=== PATIENT | male | born 1985 | race Caucasian/White ===

== ENCOUNTER 2018-02-24 20:38 | Inpatient (IN) ==
[2018-02-24] MEDS ORDERED: Acetaminophen 325 MG TABLET PO PRN (22:51)
[2018-02-24] MEDS ORDERED: *HR* LORazepam 2 MG/ML VIAL IVP PRN (22:51)
[2018-02-24] MEDS ORDERED: *HR* Promethazine 25 MG/ML VIAL IVP PRN (22:51)
[2018-02-24] MEDS ORDERED: Naloxone 0.4 MG/ML INJ IVP PRN (22:51)
--- NOTE | 2018-02-24 23:11 | Internal Med History&Physical ---
Date of Encounter: 02/24/18 Time of Encounter: 22:15 Internal Medicine - H&P: HPI Chief complaint: lightheaded; dizzy; near syncope Admitted From: Hospital to Hospital Transfer Plans for Post Hospital Care: Home History of present illness: Mr. Medrano is a 32 year old male who presents in transfer from [facility] Emergency Department for concerns of near syncope, dehydration, and acute renal failure. I spoke with Dr. Calderon and accepted the patient in transfer. Upon arrival to the [facility], I saw patient shortly after he came to the unit. Patient complained of profound lightheadedness, dizziness, and almost passed out today. He was working at a local [employer] this weekend and was outside in the heat and humidity and sweating profusely. He has had very little oral fluid intake. He also actually had some significant vomiting today. In addition to that, he's been on his routine medications including his metoprolol and Losartan/HCT. He also complains of chronic diarrhea for over 1 month duration. He has been having about 3-4 liquid stools per day and is having poor oral intake. His has been hospitalized over the last month with Clostridium Difficile colitis and he has been obviously exposed to her. He states he has been tested for C. difficile colitis twice recently in the last few weeks (both reportedly negative). However, I could find no documentation of that other than November of this year. He denies any fevers, chills, or night sweats. He denies any bleeding ulcers or melena or hematemesis. He does inform me that he drinks alcohol excessively, roughly 20 shots of hard liquor per day. His last alcohol intake was 2 days ago. He has never gone through alcohol withdrawal, but he does feel a little shaky and jittery. He and his both drink alcohol excessively, but he is adamant that they are both quitting alcohol effective immediately. Upon presentation to the ER in [place], his blood pressure was low at 80s/40s. He was feeling quite lightheaded and dizzy and on the verge of syncope. He was fluid resuscitated there with 2 L of fluids and then started on maintenance IV fluids. He states that after his fluid resuscitation, he feels much better. He has no further dizziness, lightheadedness, or sensation that he is going to pass out. Currently, his blood pressure is 124/71. Past Med Surg Social Fam HX - Past Medical History Attestation: Yes The following information was validated with the patient. Source: patient, old records reviewed, other ([facility] records) Medical history: asthma, GERD, hypertension Psychiatric history: anxiety, depression - Past Surgical History Surgical History: no surgical history Additional surgical history: MRSA on right knee. - Social History Smoking Status: Never smoker Smokeless Tobacco Status: No Alcohol use: heavy (reports 20 shots per day hard liquor) Drug use: none Current living situation: Home, With Family Activity Level: Independent ambulation Recent Out of Country Travel Within the Last 8 Weeks: No - Family History Mother Adopted: No Twin of Family Member: Yes, Identical Living Status: Still Living Hx Family Cardiac Disorders: Yes (father) Hx Family Respiratory Disorders: No Hx Family Cancer: Yes (grandma) Hx Family GI Disorders: No Hx Family Genitourinary Disorders: No Hx Family Endocrine Disorder: Yes (thyroid disease) Hx Family Musculoskeletal Disorders: No Hx Family Neuromuscular Disorders: No Hx Family Neurologic Disorders: No Hx Family HEENT Disorders: No Hx Family Autoimmune Disorders: No Hx Family Reproductive Disorders: No Hx Family Psychosocial Disorders: No Hx Family Medical Disorders: No Internal Medicine - H&P: Meds ALPRAZolam [Xanax 0.5 MG Tablet] 1 tab PO DAILY 11/24/17 [History] Bupropion HCl [Wellbutrin Xl] 300 mg PO DAILY 11/24/17 [History] Losartan/Hydrochlorothiazide [Losartan-Hctz 100-25 mg Tab] 1 tab PO DAILY [History] Metoprolol [Lopressor] 25 mg PO DAILY 11/24/17 [History] Omeprazole [PriLOSEC] 20 mg PO DAILY 11/24/17 [History] 3 Allergy/AdvReac Type Severity Reaction Status Date / Time No Known Allergies Allergy Verified 12/20/17 14:45 - Constitutional Constitutional: no chills, no fever(s), no night sweats - EENT Eyes: no blurry vision, no change in vision Ears: no ear pain, no tinnitus Nose, mouth and throat: no nasal congestion, no sinus pressure, no sore throat - Cardiovascular Cardiovascular ROS IM: lightheadedness, other (+ near syncope), no chest pain, no dyspnea, no dyspnea on exertion, no orthopnea, no palpitations, no paroxysmal nocturnal dyspnea, no syncope - Respiratory Respiratory: no cough, no dyspnea, no hemoptysis, no chest congestion, no excessive phlegm production, no change in phlegm color - Gastrointestinal Gastrointestinal: diarrhea, heartburn, nausea, vomiting, no abdominal pain, no coffee ground emesis, no hematemesis, no hematochezia, no melena - Genitourinary Genitourinary ROS male: difficulty urinating (decreased urine output last 24 hours), no dysuria, no flank pain, no hematuria - Musculoskeletal Musculoskeletal ROS IM: muscle cramps, no arthralgias, no back pain - Integumentary Integumentary IM: no rash, no jaundice - Neurological Neurological ROS: dizziness, no focal weakness, no frequent falls, no headache(s ), no numbness, no paresthesias - Psychiatric Psychiatric: anxiety, no depression - Endocrine Endocrine IM: excessive sweating, flushing, no cold intolerance, no heat intolerance, no polydipsia, no polyphagia - Allergic/Immunologic Allergic/Immunologic: no GI upset with certain foods - Constitutional Vitals: Temp Pulse Resp BP Pulse Ox 98.8 F 96 18 102/66 96 02/24/18 22:08 02/24/18 22:08 02/24/18 22:08 02/24/18 22:08 02/24/18 22:08 General appearance: Present: cooperative, mild distress, A&O X 3, pleasant, answers questions appropriately Exam: looks dehydrated; sunburnt/exposed (face); a little jittery - Head Head exam: Present: atraumatic, normal inspection - Eye Eye exam: Present: EOMI, PERRL. Absent: scleral icterus Pupils: Present: normal accommodation - ENT ENT exam: Present: mucous membranes dry, normal exam, normal oropharynx - Neck Neck exam general surgery: Present: full ROM, supple. Absent: tenderness, nuchal rigidity, thyromegaly - Respiratory Respiratory exam: Present: CTAB. Absent: chest wall tenderness, rales, respiratory distress, rhonchi, wheezes - Cardiovascular Cardiovascular exam: Present: RRR, +S1, +S2. Absent: diastolic murmur, systolic murmur - GI/Abdominal GI/Abdominal exam: Present: normal bowel sounds, soft. Absent: guarding, hepatomegaly, mass, rebound, splenomegaly, tenderness - Extremities Exam Extremities exam: Present: full ROM, tenderness (mild cramping), warm, radial pulses palpable and symmetrical. Absent: calf tenderness, joint swelling, pedal edema - Back Exam Back exam: Present: normal inspection. Absent: CVA tenderness (L), CVA tenderness (R) - Neurological Exam Neurological exam: Present: alert, CN II-XII intact, oriented X3, no focal deficits, strengths equal and symetr throughout - Psychiatric Psychiatric exam: Present: normal affect, normal mood - Skin Skin exam: Present: dry, intact, warm Internal Med - H&P Results - Labs Labs: I reviewed the labs at [facility] and they include the following: WBC 13.5 Hemoglobin 16.4 Hematocrit 47.1 Platelets 273 Sodium 129 Potassium 3.8 Chloride 93 Creatinine 7.13 Glucose 99 Lactic acid 1.1 Creatinine kinase 49 Urinalysis -- cloudy urine, specific gravity greater than 1.030 - Assessment and plan (1) Acute kidney failure Current Visit: Yes Status: Acute Assessment and plan: 1. Likely due to volume depletion in the setting of diuretic use, ARB use, inability to compensate low BP due to BB use, and volume loss from excessive sweating, vomiting, and diarrhea while being exposed to heat, sun, and humidity. 2. Patient also likely suffering form alcohol withdrawal and increased insensible water loss. 3. Will hydrate aggressively, hold BP meds, monitor chemistries and renal function closely. 4. Will order renal ultrasound in the morning. 5. Will culture urine, but I do not suspect infection. Blood cultures already obtained at [place]. 6. Consult nephrology to assist with management and follow up. Qualifiers: Acute renal failure type: unspecified Qualified Code(s): N17.9 - Acute kidney failure, unspecified (2) Hypovolemic shock Current Visit: Yes Status: Resolved Assessment and plan: 1. Patient fluid resuscitated at [facility]. 2. Continue IVF hydration aggressively and monitor hemodynamics. 3. Monitor I/O closely. (3) Alcohol withdrawal Current Visit: Yes Status: Acute Assessment and plan: 1. Will place on CIWA protocol. 2. Will schedule Librium given his early withdrawal symptoms and heavy liquor use. 3. MVI/Thiamine/Folate per protocol. 4. I had a lengthy, [id number] talk with patient on the need to quit alcohol abuse -- both he and his . Patient agreed and states he and are both determined to abstain from alcohol. Patient may need social sciences professor and referral to AA. Qualifiers: Complication of substance-induced condition: uncomplicated Qualified Code(s ): F10.230 - Alcohol dependence with withdrawal, uncomplicated (4) Diarrhea Current Visit: Yes Status: Chronic Assessment and plan: 1. Will order stool GI panel and start treatment for suspected C. Diff with Flagyl. 2. Contact precautions. 3. Will stop Flagyl if GI panel negative. 4. May also be due to alcohol abuse/withdrawal. Qualifiers: Diarrhea type: unspecified type Qualified Code(s): R19.7 - Diarrhea, unspecified (5) DVT prophylaxis Current Visit: Yes Status: Acute Assessment and plan: 1. Heparin SQ.
[2018-02-24 23:36] LABS: Albumin 4.6 g/dL (3.5-5.7); Albumin/Globulin Ratio 1.8 (1.1-2.2); Bilirubin,Total 0.9 mg/dL (0.3-1.0); Calcium 9.3 mg/dL (8.6-10.3); Globulin 2.6 g/dL (2.4-3.5); Magnesium 1.8 mg/dL (1.6-2.6); Potassium 3.9 mEq/L (3.5-5.1); Total Protein 7.2 g/dL (6.4-8.9)
[2018-02-24] MEDS: metroNIDAZOLE 500 MG TABLET PO SCH (23:53)
[2018-02-24] MEDS: Famotidine 20 MG TABLET PO SCH (23:53)
[2018-02-24] MEDS: *HR* Heparin 5,000 UNIT/ML VIAL SQ SCH (23:53)
[2018-02-25] MEDS: 0.9 % Sodium Chloride 1,000 ML IVC SCH ×2 (03:15→09:55)
[2018-02-25 05:35] LABS: Basophils # 0.1 K/mcL (0.0-0.2); Basophils % 0.6 %; Eosinophils # 0.1 K/mcL (0.0-0.6); Eosinophils % 0.6 %; Hematocrit 40.7 % (37.5-50.1); Hemoglobin 14.2 g/dL (12.9-16.9); Immature Granulocytes % 1.6 % (0-4); Lymphocytes # 2.6 K/mcL (0.6-4.6); Lymphocytes % 21.8 %; Mean Corpuscular HGB Conc 34.9 g/dL (31.6-35.5); Mean Corpuscular Hemoglobin 33.8 pg (28.0-33.3); Mean Corpuscular Volume 96.9 fL (83.0-100.0); Mean Platelet Volume 10.2 fL (9.4-12.4); Monocytes # 1.2 K/mcL (0.0-1.3); Monocytes % 10.6 %; Neutrophils # 7.6 K/mcL (1.6-8.9); Platelet Count 226 K/mcL (140-400); Red Cell Distribution Width 13.2 % (11.5-14.5); Segmented Neutrophils % 64.8 %
[2018-02-25 05:41] LABS: Prothrombin Time 10.7 Seconds (9.4-12.1)
[2018-02-25 05:43] LABS: Activated Partial Thrombo Time 27.7 Seconds (26.0-36.0)
[2018-02-25 05:58] LABS: Calcium 8.5 mg/dL (8.6-10.3); Potassium 3.5 mEq/L (3.5-5.1)
[2018-02-25] MEDS: *HR* Heparin 5,000 UNIT/ML VIAL SQ SCH ×3 (06:12→22:06)
[2018-02-25] MEDS: Famotidine 20 MG TABLET PO SCH (07:55)
[2018-02-25] MEDS: metroNIDAZOLE 500 MG TABLET PO SCH (07:55)
[2018-02-25] MEDS ORDERED: *HR* LORazepam 2 MG/ML VIAL IVP PRN ×2 (08:46)
[2018-02-25 10:39] LABS: Adenovirus F 40/41 PCR Not detected (Not detect); Astrovirus PCR Not detected (Not detect); C.difficile Toxin A/B by PCR Not detected (Not detect); Campylobacter by PCR Not detected (Not detect); Cryptosporidium by PCR Not detected (Not detect); Cyclospora cayetanensis PCR Not detected (Not detect); E. coli O157 by PCR Not detected (Not detect); Entamoeba histolytica PCR Not detected (Not detect); Enteroaggregative E.coli(EAEC) Not detected (Not detect); Enteropathogenic E.coli(EPEC) Not detected (Not detect); Enterotoxigenic E.coli (ETEC) Not detected (Not detect); Giardia lamblia PCR Not detected (Not detect); Norovirus GI/GII PCR Not detected (Not detect); Plesiomonas shigelloides PCR Not detected (Not detect); Rotavirus A PCR Not detected (Not detect); Salmonella PCR Not detected (Not detect); Sapovirus PCR Not detected (Not detect); Shig/EnteroinvasiveE coli EIEC Not detected (Not detect); Shigalike tox-prod E coli STEC Not detected (Not detect); Vibrio PCR Not detected (Not detect); Vibrio cholerae PCR Not detected (Not detect); Yersinia enterocolitica PCR Not detected (Not detect)
--- NOTE | 2018-02-25 10:59 | Nephrology Consult Note ---
Date of Encounter: 02/25/18 Time of Encounter: 10:47 Assessment and Plan (1) PIPE (acute kidney injury) Current Visit: Yes Status: Acute Initial Scr is 5.6 slightly improved at 4.67. Gfr is 12 improved at 15. Continue IVF. Strict I/O. Urine and serum studies ordered. Retroperitoneal US ordered. Avoid nephrotoxins and renal dose all medications. (2) Diarrhea Current Visit: Yes Status: Chronic Supportive care. Cdiff is negative. Qualifiers: Diarrhea type: unspecified type Qualified Code(s): R19.7 - Diarrhea, unspecified (3) Dehydration Current Visit: No Status: Acute Continue IVF. Continue adequate PO intake. History of Present Illness - Reason for Consult Consult date: 02/25/18 Acute Kidney Injury - Chief Complaint PIPE/dehydration - History of Present Illness Mr. Medrano is a 32 year old male who presented to [facility] ED for near syncope , dehydration, and ARF, he was then transferred to [facility]. He c/o of sever lightheadedness, dizziness, and almost passing out today. He was working outdoor at a [employer] in the heat and humidity and admitted to sweating profusely. He admits to poor po intake and loose watery stools for nearly 4 weeks. He tells me that his had C-Diff, but that he has been tested twice and it has been negative (I can not find testing anywhere in the chart). However a sample was sent down this morning and it was negative. Pt is on Losartan/HCTZ at home. Pt admits to me he and his taking roughly "20 shots a day". He reports his has decreased quite a bit with her sickness, but his last drink was Sunday. He has never withdrawn before, and feels okay right now. He is telling me that both his and him are "done drinking" and his is seeing her PCP today to get some help in quitting etoh. He does not smoke of use illegal drugs. PIPE workup has been ordered to rule out other processes. Strict I/O. Encourage PO intake and continue IVF. Past Med Surg Social Fam HX - Past Medical History Medical history: asthma, GERD, hypertension Psychiatric history: anxiety, depression - Past Surgical History Surgical History: no surgical history Additional surgical history: MRSA on right knee. - Social History Smoking Status: Never smoker Smokeless Tobacco Status: No Alcohol use: heavy (reports 20 shots per day hard liquor) Drug use: none - Family History Mother Adopted: No Twin of Family Member: Yes, Identical Living Status: Still Living Hx Family Cardiac Disorders: Yes (father) Hx Family Respiratory Disorders: No Hx Family Cancer: Yes (grandma) Hx Family GI Disorders: No Hx Family Genitourinary Disorders: No Hx Family Endocrine Disorder: Yes (thyroid disease) Hx Family Musculoskeletal Disorders: No Hx Family Neuromuscular Disorders: No Hx Family Neurologic Disorders: No Hx Family HEENT Disorders: No Hx Family Autoimmune Disorders: No Hx Family Reproductive Disorders: No Hx Family Psychosocial Disorders: No Hx Family Medical Disorders: No Medications and Allergies ALPRAZolam [Xanax 0.5 MG Tablet] 1 tab PO DAILY 11/24/17 [History] Bupropion HCl [Wellbutrin Xl] 300 mg PO DAILY 11/24/17 [History] Losartan/Hydrochlorothiazide [Losartan-Hctz 100-25 mg Tab] 1 tab PO DAILY [History] Metoprolol [Lopressor] 25 mg PO BID 11/24/17 [History] Omeprazole [PriLOSEC] 20 mg PO DAILY 11/24/17 [History] Albuterol Sulfate [Ventolin Hfa] 2 puff IH Q6H PRN 02/25/18 [History] Budesonide/Formoterol 80/4.5 [Symbicort 80/4.5] 2 puff IH BID 02/25/18 [History ] 3 Allergy/AdvReac Type Severity Reaction Status Date / Time No Known Allergies Allergy Verified 12/20/17 14:45 Review of Systems All Systems review (narrative): all other systems negative. Constitutional: fatigue, headache(s), no chills, no fever(s) Cardiovascular: lightheadedness, syncope, no chest pain, no dyspnea Respiratory: no cough, no dyspnea Gastrointestinal: change in bowel habits, diarrhea, nausea, vomiting Genitourinary Male: no dysuria, no hematuria, no urinary frequency, no urinary hesitancy Exam - Vital Signs Vital signs: Initial Vital Signs Temp Pulse Resp BP Pulse Ox 98.8 F 96 18 102/66 96 02/24/18 22:08 02/24/18 22:08 02/24/18 22:08 02/24/18 22:08 02/24/18 22:08 Vital Signs - Last 8 Hours Temp Pulse Resp BP Pulse Ox 02/25/18 06:30 97.8 F 81 20 103/64 98 02/25/18 05:02 97.8 F 78 18 110/62 92 Intake and Output 02/24/18 02/25/18 02/25/18 23:59 07:59 15:59 Intake Total 60 / 60 607 / 607 393 / 393 Output Total 400 / 400 800 / 800 Balance 60 60 207 / 207 -407 / -407 Intake: IV Fluids 607 / 607 393 / 393 0.9 % Sodium Chloride 1,000 ML 607 / 607 393 / 393 @ 200 mls/hr IVC .Q5H SHANE Rx#: [id number] Oral 60 60 Output: Urine 400 / 400 800 / 800 Other: Stool Size Moderate Stool Consistency loose Stool Characteristics Mucoid Stool Color Brown Weight 139.6 kg 139.6 kg Patient Weight 02/25/18 23:59 Weight 139.6 kg - General Appearance General appearance: well-developed, well-nourished EENT: ATNC, hearing intact, vision intact Neck: supple Respiratory: clear Cardiology: no edema, normal S1, normal S2 Gastrointestinal: normoactive bowel sounds, no tenderness, no guarding Integumentary: no rash, warm and dry Neurologic: alert and oriented x3 Psychiatric: mood/affect appropriate, cooperative Results - Lab Results 02/25/18 05:16 02/25/18 05:16 Most recent lab results Calcium 8.5 mg/dL (8.6-10.3) L 02/25/18 05:16 Magnesium 1.8 mg/dL (1.6-2.6) 02/24/18 23:06 Consult Discharge Plan - Plan Referrals: Andreina Black, MEDICAL SUPPORT SPECIALIST [Primary Care Provider] -
[2018-02-25 12:11] LABS: Bilirubin,Urine Negative (Negative); Blood,Urine Negative (Negative); Clarity,Urine Clear (Clear); Color,Urine Yellow (Yellow); Glucose,Urine (UA) Normal (Normal); Ketones,Urine Negative (Negative); Leukocyte Esterase,Urine Negative (Negative); Nitrite,Urine Negative (Negative); Protein,Urine Negative (Neg-Trace); Specific Gravity,Urine 1.016 (1.010-1.025); Urobilinogen,Urine Normal (Normal)
[2018-02-25 14:47] LABS: Hepatitis A Antibody IgM Nonreactive (Nonreactive); Hepatitis B Core IgM Nonreactive (Nonreactive); Hepatitis B Surface Antigen Nonreactive (Nonreactive); Hepatitis C Virus Antibody Nonreactive (Nonreactive)
--- NOTE | 2018-02-25 17:27 | Internal Med Progress Note ---
Hospitalist Progress Note - Encounter Date of Encounter: 02/25/18 Time of Encounter: 17:15 - Subjective Interval History: Pt denies fever chills, N/V or abdominal pain. Reports he's still having about 3 stools a day. Denies CP and SOB. - Exam Vitals: Temp Pulse Resp BP Pulse Ox 97.4 F L 98 20 124/77 97 02/25/18 15:51 02/25/18 15:51 02/25/18 15:51 02/25/18 15:51 02/25/18 15:51 Exam: General appearance: Present: cooperative, mild distress, A&O X 3, pleasant, answers questions appropriately Exam: looks dehydrated; sunburnt/exposed (face); a little jittery - Head Head exam: Present: atraumatic, normal inspection - Eye Eye exam: Present: EOMI, PERRL. Absent: scleral icterus Pupils: Present: normal accommodation - ENT ENT exam: Present: mucous membranes dry, normal exam, normal oropharynx - Neck Neck exam general surgery: Present: full ROM, supple. Absent: tenderness, nuchal rigidity, thyromegaly - Respiratory Respiratory exam: Present: CTAB. Absent: chest wall tenderness, rales, respiratory distress, rhonchi, wheezes - Cardiovascular Cardiovascular exam: Present: RRR, +S1, +S2. Absent: diastolic murmur, systolic murmur - GI/Abdominal GI/Abdominal exam: Present: normal bowel sounds, soft. Absent: guarding, hepatomegaly, mass, rebound, splenomegaly, tenderness - Extremities Exam Extremities exam: Present: full ROM, tenderness (mild cramping), warm, radial pulses palpable and symmetrical. Absent: calf tenderness, joint swelling, pedal edema - Back Exam Back exam: Present: normal inspection. Absent: CVA tenderness (L), CVA tenderness (R) - Neurological Exam Neurological exam: Present: alert, CN II-XII intact, oriented X3, no focal deficits, strengths equal and symetr throughout - Psychiatric Psychiatric exam: Present: normal affect, normal mood - Skin Skin exam: Present: dry, intact, warm - Assessment and Plan (1) Acute kidney failure Current Visit: No Status: Acute Assessment and Plan: 1. Likely due to volume depletion in the setting of diuretic use, ARB use, inability to compensate low BP due to BB use, and volume loss from excessive sweating, vomiting, and diarrhea while being exposed to heat, sun, and humidity. 2. Patient also likely suffering form alcohol withdrawal and increased insensible water loss. 3. Will continue to hydrate aggressively, hold BP meds, monitor chemistries and renal function closely. 4. Renal ultrasound done in the morning and results pending. 5. Urine analysis neg for infection. Blood cultures already obtained at [place]. 6. Nephrology consulting and trending Cr. (2) Hypovolemic shock Current Visit: Yes Status: Resolved Assessment and Plan: 1. Patient fluid resuscitated at [place] ER. 2. Continue IVF hydration aggressively and monitor hemodynamics. 3. Monitor I/O closely. (3) Alcohol withdrawal Current Visit: Yes Status: Acute Assessment and Plan: 1. On CIWA protocol. 2. Librium taper ordered given his early withdrawal symptoms and heavy liquor use. 3. MVI/Thiamine/Folate per protocol. 4. Pt strongly advised to abstain from alcohol. Patient may need case management social worker and referral to AA. (4) Diarrhea Current Visit: Yes Status: Chronic Assessment and Plan: 1. Stool GI panel was negative so will DC Flagyl for now. 2. Contact precautions. 3. Explained to pt that this may also be due to alcohol abuse/withdrawal. (5) DVT prophylaxis Current Visit: Yes Status: Acute Assessment and Plan: 1. Heparin SQ. - Summary of Assessment and Plan Summary of Assessment and Plan: Mr. Medrano is a 32 year old male who presents in transfer from [facility] Emergency Department for concerns of near syncope, dehydration, and acute renal failure. I spoke with Dr. Calderon and accepted the patient in transfer. Upon arrival to the [facility], I saw patient shortly after he came to the unit. Patient complained of profound lightheadedness, dizziness, and almost passed out today. He was working at a local [employer] this weekend and was outside in the heat and humidity and sweating profusely. He has had very little oral fluid intake. He also actually had some significant vomiting today. In addition to that, he's been on his routine medications including his metoprolol and Losartan/HCT. Upon presentation to the ER in [place], his blood pressure was low at 80s/40s. He was feeling quite lightheaded and dizzy and on the verge of syncope. He was fluid resuscitated there with 2 L of fluids and then started on maintenance IV fluids. He states that after his fluid resuscitation, he feels much better. He has no further dizziness, lightheadedness, or sensation that he is going to pass out. Currently, his blood pressure is 124/71. HE was also found to be in PIPE with Cr 5.60 - Time Spent with Patient Total time spent is greater than 50% in coordination of care (as documented) at patient's floor/unit and/or counseling patient: less than 15 minutes Plan of Care Discussed with: patient Internal Medicine: Result - Labs CBC & Chem 7: 02/25/18 05:16 02/25/18 05:16 Labs: Short CBC 02/25/18 Range/Units 05:16 WBC 11.7 H (4.3-11.1) K/mcL Hgb 14.2 D (12.9-16.9) g/dL Hct 40.7 (37.5-50.1) % Plt Count 226 (140-400) K/mcL Neutrophils # 7.6 (1.6-8.9) K/mcL BMP 02/24/18 02/25/18 23:06 05:16 Sodium 130 L 130 L Potassium 3.9 3.5 Chloride 93 L 96 L Carbon Dioxide 22 L 21 L BUN 54 H 55 H Creatinine 5.60 H 4.67 H Glucose 113 H 94 Calcium 9.3 8.5 L Liver Function 02/24/18 Range/Units 23:06 Total Bilirubin 0.9 (0.3-1.0) mg/dL AST 46 H (13-39) Units/L ALT 74 H (7-52) Units/L Alkaline Phosphatase 68 (34-104) Units/L Albumin 4.6 (3.5-5.7) g/dL Urine 02/25/18 Range/Units 11:58 Urine Color Yellow (Yellow) Urine Clarity Clear (Clear) Urine pH 6.0 (5.0-8.0) pH Units Ur Specific [place] 1.016 (1.010-1.025) Urine Protein Negative (Neg-Trace) mg/dL Urine Glucose (UA) Normal (Normal) mg/dL - ABG Interpretation ABG results: PT/INR, D-dimer PT 10.7 Seconds (9.4-12.1) 02/25/18 05:16 Consult Discharge Plan - Plan Referrals: Andreina Black, CONTOUR SANDER [Primary Care Provider] - (1) Acute kidney failure Qualifiers: Acute renal failure type: unspecified Qualified Code(s): N17.9 - Acute kidney failure, unspecified (3) Alcohol withdrawal Qualifiers: Complication of substance-induced condition: uncomplicated Qualified Code(s) : F10.230 - Alcohol dependence with withdrawal, uncomplicated (4) Diarrhea Qualifiers: Diarrhea type: unspecified type Qualified Code(s): R19.7 - Diarrhea, unspecified
[2018-02-25] MEDS ORDERED: Thiamine (B-1) 100 MG, Folic Acid 1 MG, MVI, adult with vitamin K 10 ML in 0.9 % Sodi... IVPB SCH (18:00)
[2018-02-26 05:08] LABS: Hematocrit 39.7 % (37.5-50.1); Hemoglobin 13.6 g/dL (12.9-16.9); Mean Corpuscular HGB Conc 34.3 g/dL (31.6-35.5); Mean Corpuscular Hemoglobin 33.3 pg (28.0-33.3); Mean Corpuscular Volume 97.3 fL (83.0-100.0); Mean Platelet Volume 10.3 fL (9.4-12.4); Platelet Count 177 K/mcL (140-400); Red Blood Count 4.08 M/mcL (4.19-5.50); Red Cell Distribution Width 12.7 % (11.5-14.5)
[2018-02-26 05:29] LABS: Albumin 3.8 g/dL (3.5-5.7); Calcium 8.7 mg/dL (8.6-10.3); Magnesium 2.1 mg/dL (1.6-2.6); Phosphorous 3.4 mg/dL (2.7-4.5); Potassium 3.4 mEq/L (3.5-5.1)
[2018-02-26] MEDS: *HR* Heparin 5,000 UNIT/ML VIAL SQ SCH (05:51)
--- NOTE | 2018-02-26 06:42 | Event Note ---
Date of Encounter: 02/26/18 Time of Encounter: 06:40 Nephrology Chart Review His renal function has dramatically improved, thus demonstrating a prerenal injury. See the consult note regarding discharge medication recommendations. I' d recommend he have a BMP ordered in about 1 week and to follow up with his PCP ; plus at least one outpt Nephrology follow up in about 4-6 weeks to ensure that he does not develop CKD. I will sign-off at this point, but thank you for having consulted the [facility] group.
[2018-02-26 10:43] VITALS: BP 130/83
--- NOTE | 2018-02-26 11:17 | Discharge Summary ---
- NOTES TO OUTPATIENT PROVIDER Notes to Outpatient Provider: Pt admitted as hypotension and PIPE with Cr up to 7. After hydration, Cr get down to 1.68. His Losartan/HCTZ is on hold now. Please follow up renal function as outpatient. Date of Encounter: 02/26/18 Time of Encounter: 10:00 - Discharge Diagnosis (1) Acute kidney failure Priority: Primary Status: Acute Qualifiers: Acute renal failure type: unspecified Qualified Code(s): N17.9 - Acute kidney failure, unspecified (2) Hypovolemic shock Priority: Primary Status: Resolved (3) Alcohol withdrawal Priority: Secondary Status: Acute Qualifiers: Complication of substance-induced condition: uncomplicated Qualified Code(s ): F10.230 - Alcohol dependence with withdrawal, uncomplicated (4) Diarrhea Priority: Primary Status: Chronic Qualifiers: Diarrhea type: unspecified type Qualified Code(s): R19.7 - Diarrhea, unspecified (5) DVT prophylaxis Priority: Secondary Status: Acute Hospital course: Mr. Medrano is a 32 year old male transferred from [facility] emergency room for dehydration, PIPE, and hypotension. Patient was treated with IV fluid. His HTN medication was on hold. After treatment, his renal function significantly improved. Creatinine 1.65 today (from over 7). Patient's diarrhea has improved , has 2 loose stool BMs over last 24 hours. Renal US negative. C. difficile test negative. Patient has good appetite and eating and drinking well. No nausea vomiting abdominal pain. Will discharge patient home today. Patient was advised to continue hydrate himself with by mouth fluid. His Losartan/HCTZ is on hold because of renal failure. Patient will check his renal function in one week with PCP. I have seen and examined the patient today. Patient denies lightheaded/ dizziness/nausea/abdominal pain. Vitals are stable. Patient has good appetite and eating and drinking well. Will discharge patient home and continue follow- up as outpatient with PCP. Discharge discussed with: patient - Time Spent with Patient Total time spent providing and/or coordinating discharge services: 30 min Less than 30 minutes - Discharge Medications Prescriptions: Folic Acid 1 mg PO DAILY 30 Days #30 tablet Thiamine (B-1) [Vitamin B-1] 100 mg PO DAILY 30 Days #30 tablet Home Medications: ALPRAZolam [Xanax 0.5 MG Tablet] 1 tab PO DAILY 11/24/17 [History] Bupropion HCl [Wellbutrin Xl] 300 mg PO DAILY 11/24/17 [History] Metoprolol [Lopressor] 25 mg PO BID 11/24/17 [History] Omeprazole [PriLOSEC] 20 mg PO DAILY 11/24/17 [History] Albuterol Sulfate [Ventolin Hfa] 2 puff IH Q6H PRN 02/25/18 [History] Budesonide/Formoterol 80/4.5 [Symbicort 80/4.5] 2 puff IH BID 02/25/18 [History ] Folic Acid 1 mg PO DAILY 30 Days #30 tablet 02/26/18 [Rx] Thiamine (B-1) [Vitamin B-1] 100 mg PO DAILY 30 Days #30 tablet 02/26/18 [Rx] Allergies/Adverse Reactions: 3 Allergy/AdvReac Type Severity Reaction Status Date / Time No Known Allergies Allergy Verified 12/20/17 14:45 Date of admission: 02/24/18 23:28 Primary care physician: Andreina Black CNP Consults: 02/24/18 22:51 Consult to Nephrology [CONS] Routine Consulting Provider: [facility]/CATHERINE/NEELA/ELIDA Reason for Consult: acute renal failure; suspect voume depletion Call Completed: No Discharging clinician: Shaan Skinner Anticipated date of discharge: 02/26/18 - Constitutional Vitals: Temp Pulse Resp BP Pulse Ox 98.0 F 72 17 130/83 97 02/26/18 10:42 02/26/18 10:42 02/26/18 10:42 02/26/18 10:42 02/26/18 10:42 General appearance: Present: cooperative, A&O X 3, pleasant, no acute distress, answers questions appropriately Exam: In NAD - Head Head exam: Present: atraumatic, normocephalic - Eye Eye exam: Present: PERRL, conjuntiva pink, sclera anicteric Pupils: Present: PERRL - Neck Neck exam general surgery: Present: supple, trachea midline. Absent: lymphadenopathy - Respiratory Respiratory exam: Present: CTAB. Absent: accessory muscle use, rales, rhonchi, wheezes - Cardiovascular Cardiovascular exam: Present: RRR, +S1, +S2. Absent: diastolic murmur, gallop, rubs, systolic murmur - GI/Abdominal GI/Abdominal exam: Present: normal bowel sounds, soft, no peritoneal signs. Absent: distended, tenderness - Extremities Exam Extremities exam: Present: warm, radial pulses palpable and symmetrical. Absent : calf tenderness, cyanotic, pedal edema - Neurological Exam Neurological exam: Present: CN II-XII intact, oriented X3, no focal deficits. Absent: pronater drift, facial droop, speech deficit - Skin Skin exam: Present: dry, intact - Patient Status Disposition: Home, Self-Care Condition: Good Functional capacity at discharge: independent ambulation Overall status at discharge: patient is progressing back to baseline - Discharge Instructions Follow Up With: Andreina Black, CARDIOVASCULAR PHYSICIAN ASSISTANT [Primary Care Provider] - 03/05/18 - Diet and Activity Activity: increase activity as tolerated Diet: regular diet
[2018-02-28] MEDS ORDERED: Folic Acid 1 MG TABLET PO SCH (09:00)
[2018-02-28] MEDS ORDERED: Thiamine (B-1) 100 MG TABLET PO SCH (09:00)
== END 2018-02-26 13:13 | disposition home or self-care (01) | DRG 469 ==
LOC: 2ANU
PROVIDERS: ADMIT Pediatrics; ATTEND Pediatrics